=== PATIENT | male | born 1985 | race Caucasian/White ===

== ENCOUNTER 2017-09-02 19:23 | Emergency (ER) | payer SELFPAY ==
[~2017-09-02] VITALS: Ht 190.5 cm; Wt 110.0 kg
[~2017-09-02 19:23] MED LIST: LEVA500T PO; METO50TA PO; PERC5TAB12 PO
[2017-09-02 19:35] VITALS: BP 168/79; PULSE 84; RESP 18; TEMP 99.1; O2SAT 99
[2017-09-02] MEDS ORDERED: SODIUM CHLOR 0.9% 1000 ML INJ 1,000 ML IV ONE (20:45)
[2017-09-02] MEDS ORDERED: KETOROLAC TROMETHAMINE 30 MG/ML (IVP) VIAL IV PUSH ONE (20:45)
--- NOTE | 2017-09-02 21:00 | PD ---
HPI Chief Complaint: Skin Problem Time Seen by Provider: 20:27 Travel History International Travel<30 days: No Contact w/Intl Traveler<30days: No Traveled to known affect area: No History of Present Illness HPI Patient is a 32-year-old male presenting to emerge department for evaluation of redness and swelling to his left forearm. Patient states he injected Dilaudid into that area on Monday. Since that time he has had a progression of the symptoms. Patient reports his pain is a 9 out of 10, throbbing aching. He denies any fever chills. He denies any chest pain, shortness of breath. Patient states he does not routinely use IV drugs although he has a history of it. Symptom onset was gradual, symptoms are moderate in nature. There are no alleviating factors. Pain is constant PFSH Past Medical History Hypertension: Yes Kidney Stones: Yes (left renal ) Tetanus Vaccination: < 5 Years Influenza Vaccination: Yes Past Surgical History Genitourinary Surgery: Yes (lithrotripsy ) Other Surgery: Yes (right arm tendon repair) Social History Alcohol Use: No Tobacco Use: Yes Substance Use: Yes Allergies-Medications (Allergen,Severity, Reaction): Coded Allergies: No Known Allergies (Unverified Allergy, Unknown, 09/02/17) Reported Meds & Prescriptions Reported Meds & Active Scripts Active Ibuprofen 800 Mg Tab 800 Mg PO Q6HR PRN Clindamycin (Clindamycin HCl) 300 Mg Cap 300 Mg PO TID 10 Days Review of Systems Except as stated in HPI: all other systems reviewed are Neg General / Constitutional: No: Fever, Chills Musculoskeletal: Positive: Myalgias, Edema, Pain Skin: Positive Lumps, Positive Change in Pigmentation Physical Exam Narrative GENERAL: Well-developed, well-nourished, alert male. Presenting in no acute distress. SKIN: Warm and dry. 4 cm area of induration to the right AC, no fluctuance noted. Warmth and tenderness to palpation. HEAD: Atraumatic. Normocephalic. EYES: Pupils equal and round. No scleral icterus. No injection or drainage. ENT: No nasal bleeding or discharge. Mucous membranes pink and moist. NECK: Trachea midline. No JVD. CARDIOVASCULAR: Regular rate and rhythm. RESPIRATORY: No accessory muscle use. Clear to auscultation. Breath sounds equal bilaterally. GASTROINTESTINAL: Abdomen soft, non-tender, nondistended. Hepatic and splenic margins not palpable. MUSCULOSKELETAL: Extremities without clubbing, cyanosis. No obvious deformities. Edema to the right forearm. NEUROLOGICAL: Awake and alert. No obvious cranial nerve deficits. Motor grossly within normal limits. Five out of 5 muscle strength in the arms and legs. Normal speech. PSYCHIATRIC: Appropriate mood and affect; insight and judgment normal. Data Data Last Documented VS Vital Signs Date Time Temp Pulse Resp B/P (MAP) Pulse Ox O2 Delivery O2 Flow Rate FiO2 09/02/17 19:35 99.1 84 18 168/79 (108) 99 Orders Orders Us Arm Soft Tissue (09/02/17 ) Complete Blood Count With Diff (09/02/17 20:34) Comprehensive Metabolic Panel (09/02/17 20:34) Lactic Acid Sepsis Protocol (09/02/17 20:34) Blood Culture (09/02/17 20:34) Blood Glucose (09/02/17 20:34) Ecg Monitoring (09/02/17 20:34) Iv Access Insert/Monitor (09/02/17 20:34) Oximetry (09/02/17 20:34) Oxygen Administration (09/02/17 20:34) Ketorolac Inj (Toradol Inj) (09/02/17 20:45) Sodium Chlor 0.9% 1000 Ml Inj (Ns 1000 M (09/02/17 20:45) Clindamycin 900 Mg/Ns Premix (Cleocin 90 (09/02/17 22:00) Ed Discharge Order (09/02/17 23:03) Wound Culture And Gram Stain (09/02/17 23:35) Labs Laboratory Tests Test 09/02/17 21:00 09/02/17 21:02 Lactic Acid Level 1.0 mmol/L White Blood Count 14.0 TH/MM3 Red Blood Count 5.05 MIL/MM3 Hemoglobin 14.5 GM/DL Hematocrit 42.8 % Mean Corpuscular Volume 84.8 FL Mean Corpuscular Hemoglobin 28.8 PG Mean Corpuscular Hemoglobin Concent 33.9 % Red Cell Distribution Width 13.6 % Platelet Count 124 TH/MM3 Mean Platelet Volume 9.4 FL Neutrophils (%) (Auto) 78.1 % Lymphocytes (%) (Auto) 13.4 % Monocytes (%) (Auto) 7.6 % Eosinophils (%) (Auto) 0.5 % Basophils (%) (Auto) 0.4 % Neutrophils # (Auto) 11.0 TH/MM3 Lymphocytes # (Auto) 1.9 TH/MM3 Monocytes # (Auto) 1.1 TH/MM3 Eosinophils # (Auto) 0.1 TH/MM3 Basophils # (Auto) 0.1 TH/MM3 CBC Comment DIFF FINAL Differential Comment Blood Urea Nitrogen 8 MG/DL Creatinine 0.98 MG/DL Random Glucose 108 MG/DL Total Protein 7.8 GM/DL Albumin 3.7 GM/DL Calcium Level 10.5 MG/DL Alkaline Phosphatase 94 U/L Aspartate Amino Transf (AST/SGOT) 44 U/L Alanine Aminotransferase (ALT/SGPT) 57 U/L Total Bilirubin 0.5 MG/DL Sodium Level 136 MEQ/L Potassium Level 4.2 MEQ/L Chloride Level 103 MEQ/L Carbon Dioxide Level 22.7 MEQ/L Anion Gap 10 MEQ/L Estimat Glomerular Filtration Rate 88 ML/MIN MDM Medical Decision Making Medical Screen Exam Complete: Yes Emergency Medical Condition: Yes Interpretation(s) Vital Signs Date Time Temp Pulse Resp B/P (MAP) Pulse Ox O2 Delivery O2 Flow Rate FiO2 09/02/17 19:35 99.1 84 18 168/79 (108) 99 Differential Diagnosis Cellulitis versus abscess versus DVT versus compartment syndrome versus other Narrative Course Patient is 32-year-old male presenting to the emergency department for evaluation of redness and swelling to his left forearm after he injected IV drugs and Monday. Patient's vital signs are stable. Labs imaging ordered and pending. Patient will be given Toradol for pain. CBC with a white blood cell count of 14.0 with slight left shift. Lactic acid 1.0, chemistry with no acute findings. An ultrasound was performed to rule out DVT and to further assess the abscess. Ultrasound showed a 3.8 x 1.9 cm probable phlegmonous mass in the proximal forearm. Please see procedure report for I&D. Patient tolerated procedure well. He was given clindamycin IV 1 dose in the emergency department. He was given a prescription to complete full course of antibiotics at home. Patient was advised to return in 48 hours to have packing removed. Patient's mother is at bedside. They both verbalized understanding of discharge instructions as well as need for prompt follow-up should his symptoms worsen despite antibiotic therapy. Patient stable for discharge. Plan of care and findings were discussed with my attending physician as well. Procedures Procedure Narrative After the risks and benefits were discussed the following procedure was performed: INCISION AND DRAINAGE OF ABSCESS: The area was prepped and was sterilely draped. A subcutaneous wheal of 1 % Xylocaine with a total number 3mL was used to anesthetize the area. The area was properly anesthetized. A number 11 scalpel was used to make a 1-cm incision across the area of the abscess. Cultures were obtained. The abscess was drained an irrigated with normal saline. Quarter inch iodoform packing was placed in the wound. Sterile dressing applied. Patient advised to have packing removed in two days. Diagnosis Primary Impression: Cellulitis and abscess of right lower extremity Referrals: [facility] Patient Instructions: Abscess (GEN), Abscess Follow-up (ED), Abscess Incision and Drainage (DC), General Instructions Additional Instructions: Return to emergency Department in 48 hours to have packing removed Return to emergency department immediately for any new or worsening symptoms Complete full course of antibiotics as prescribed even if you begin to feel better Elevate extremity, keep Khanh bandage on and change dressings twice daily Med/Other Pt SpecificInfo: Prescription(s) given Scripts Ibuprofen (Ibuprofen) 800 Mg Tab 800 MG PO Q6HR Y for PAIN, #40 TAB 0 Refills Prov: Gogo Salinas 09/02/17 Clindamycin (Clindamycin) 300 Mg Cap 300 MG PO TID for Infection for 10 Days, CAP 0 Refills Prov: Gogo Salinas 09/02/17 Disposition: 01 DISCHARGE HOME Condition: Stable Gogo Salinas Sep 02, 2017 21:00
[2017-09-02 21:13] LABS: BASOPHIL # 0.1 TH/MM3 (0-0.2); BASOPHIL % 0.4 % (0.0-2.0); EOSINOPHIL # 0.1 TH/MM3 (0-0.4); EOSINOPHIL % 0.5 % (0.0-4.0); HEMATOCRIT 42.8 % (39.0-51.0); HEMOGLOBIN 14.5 GM/DL (13.0-17.0); LYMPH % 13.4 % (9.0-44.0); LYMPHOCYTE # 1.9 TH/MM3 (1.0-4.8); MEAN CELL VOLUME 84.8 FL (80.0-100.0); MEAN CORPUSCULAR HEMOGLOBIN 28.8 PG (27.0-34.0); MEAN CORPUSCULAR HGB CONC 33.9 % (32.0-36.0); MEAN PLATELET VOLUME 9.4 FL (7.0-11.0); MONO % 7.6 % (0.0-8.0); MONOCYTE # 1.1 TH/MM3 (0-0.9); NEUT % 78.1 % (16.0-70.0); PLATELET COUNT 124 TH/MM3 (150-450); RED BLOOD COUNT 5.05 MIL/MM3 (4.50-5.90); RED CELL DISTRIBUTION WIDTH 13.6 % (11.6-17.2)
[2017-09-02 21:30] LABS: ALBUMIN 3.7 GM/DL (3.4-5.0); AST (GOT) 44 U/L (15-37); BICARBONATE 22.7 MEQ/L (21.0-32.0); BLOOD UREA NITROGEN 8 MG/DL (7-18); CALCIUM 10.5 MG/DL (8.5-10.1); CHLORIDE 103 MEQ/L (98-107); CREATININE 0.98 MG/DL (0.60-1.30); GLOMERULAR FILTRATION RATE 88 ML/MIN (>89); GLUCOSE,RANDOM 108 MG/DL (74-106); SODIUM (NA) 136 MEQ/L (136-145)
[2017-09-02 21:31] LABS: ALT (GPT) 57 U/L (12-78)
[2017-09-02 21:33] LABS: ALKALINE PHOSPHATASE 94 U/L (45-117); TOTAL BILIRUBIN ADULT 0.5 MG/DL (0.2-1.0); TOTAL PROTEIN 7.8 GM/DL (6.4-8.2)
[2017-09-02] MEDS ORDERED: CLINDAMYCIN 900 MG/NS PREMIX 50 ML IV ONE (22:00)
--- NOTE | 2017-09-02 22:45 | RADRPT ---
EXAM DATE: 09/02/2017 10:34 PM EDT AGE/SEX: 32 years / Male INDICATIONS: Right arm redness and pain. CLINICAL DATA: This is the patient's initial encounter. Patient reports that signs and symptoms have been present for 1 day and indicates a pain score of 8/10. Location: Laterality: MEDICAL/SURGICAL HISTORY: . . COMPARISON: No prior exams available for comparison. FINDINGS: There is a heterogeneous mass in the right proximal forearm measuring up to 3.8 cm in length and 1.9 cm in thickness. There is surrounding increased vascularity. This probably represents a phlegmonous m ass. CONCLUSION: 1. 3.8 x 1.9 cm probable phlegmonous mass in the proximal forearm. Electronically signed by: Lincoln Miranda MD 09/02/2017 10:43 PM EDT
[2017-09-02] MEDS ORDERED: CLIN300C5 PO (23:02)
[2017-09-02] MEDS ORDERED: IBUP1TAB7 PO (23:02)
== END 2017-09-02 23:53 | disposition home or self-care (01) ==
LOC: NEPC 19:23
DX: L03.113 Cellulitis of right upper limb (principal); L02.413 Cutaneous abscess of right upper limb; B95.62 Methicillin resistant Staphylococcus aureus infection as the cause of diseases classified elsewhere; I10 Essential (primary) hypertension; Z72.0 Tobacco use; Z87.442 Personal history of urinary calculi
CPT/HCPCS: 10060; 76882; 80053; 83605; 85025; 86403; 87040; 87070; 87186; 96374; 99284; J1885; J7030; 87205